=== PATIENT | male | born 1980 | race Caucasian/White ===

== ENCOUNTER 2018-06-30 18:39 | Emergency (ER) | payer OTHER ==
[~2018-06-30] VITALS: Ht 180.3 cm; Wt 102.1 kg
[2018-06-30] MEDS ORDERED: HUMIRA20 MG/0.4 (18:50)
[2018-07-01] MEDS ORDERED: LEVSIN/SL0.125 MG SL (07:14)
[2018-07-01] MEDS ORDERED: INTESTINEX680 M1 PO (07:14)
== END 2018-07-01 07:26 | disposition home or self-care (01) ==
LOC: ER 18:39
DX: R11.11 Vomiting without nausea (principal); R10.84 Generalized abdominal pain

== ENCOUNTER 2020-12-14 14:35 | Emergency (ER) | payer OTHER ==
[~2020-12-14] VITALS: Ht 180.3 cm; Wt 103.9 kg
[~2020-12-14 14:35] MED LIST: HUMIRA20 MG/0.4; INTESTINEX680 M1 PO; LEVSIN/SL0.125 MG SL
[2020-12-14] MEDS ORDERED: LIALDA1.2 GM PO (14:49)
[2020-12-14] MEDS ORDERED: NORFLEX100MG PO (18:16)
[2020-12-14] MEDS ORDERED: KETO10TA2 PO (18:16)
== END 2020-12-14 18:20 | disposition home or self-care (01) ==
LOC: ER 14:35
DX: M62.830 Muscle spasm of back (principal)